=== PATIENT | male | born 2005 ===

== ENCOUNTER 2024-03-09 20:12 | Emergency (ER) | payer OTHER, SELFPAY ==
[2024-03-09 20:14] VITALS: BP 128/81
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
[2024-03-09] MEDS: TORADOL 15 MG IM (21:11)
== END 2024-03-09 22:34 | disposition home or self-care (01) ==
LOC: EMR 20:12
PROVIDERS: EMERGENCY PHYSICIAN Emergency Medicine
DX: S89.91XA Unspecified injury of right lower leg, initial encounter (principal); M25.461 Effusion, right knee; X50.1XXA Overexertion from prolonged static or awkward postures, initial encounter; Y93.89 Activity, other specified; Y92.815 Train as the place of occurrence of the external cause; R03.0 Elevated blood-pressure reading, without diagnosis of hypertension
CPT/HCPCS: 99284; 29505; 96372; 73564; 73565